=== PATIENT | female | born 1945 | race Two or more races ===

== ENCOUNTER → 2023-12-14 | Emergency (ER) | payer MEDICARE, OTHER ==
[~2023-12-14] VITALS: Ht 160 cm; Wt 72.0 kg
[~2023-12-14] MED LIST: AMLO-258 PO; ASPI-1444 PO; ATOR40TA28 PO; CARV6 PO; CEFT2VIA60 IM; CLOP75TA60 PO; EMPA25TA3 PO; FAMO20 PO; FERR325T23 PO; FURO20TA4 PO; FUROSEMIDE 20 MG/2 ML VIAL IVP ONE; LEVO50 PO; METF-1211 PO; MULT-1203 PO; SENN-376 PO; SODI100067 PO
[2023-12-14 11:04] VITALS: TEMP 98.3
[2023-12-14 12:18] LABS: COVID AG,FIA SOURCE NASAL SWAB
[2023-12-14 12:26] LABS: BASOPHILS % (AUTO) 0.2 % (0.0-2.0); EOSINOPHILS % (AUTO) 1.1 % (1.0-6.0); HEMATOCRIT 23.6 % (36-46); HEMOGLOBIN 7.8 g/dL (12.0-16.0); LYMPHOCYTES # (AUTO) 0.8 K/uL (1.0-4.8); LYMPHOCYTES % (AUTO) 11.1 % (22.0-44.0); MEAN CORPUSCULAR VOLUME 88 fL (80-100); MONOCYTES # (AUTO) 0.5 K/uL (0.1-1.0); MONOCYTES % (AUTO) 6.6 % (2.0-9.0); NEUTROPHILS # (AUTO) 5.9 K/uL (1.8-7.7); PLATELET COUNT (AUTO) 554 K/uL (150-450); RED BLOOD CELL COUNT(AUTO) 2.68 MIL/uL (4.00-5.20); RED CELL DISTRIBUTION WIDTH 14.6 % (11.5-14.5); WHITE BLOOD COUNT (AUTO) 7.2 K/uL (4.5-11.0)
[2023-12-14 12:32] LABS: CREATININE 1.22 mg/dL (0.60-1.30); POTASSIUM 4.1 mmol/L (3.5-5.1)
[2023-12-14 12:38] LABS: ALBUMIN 1.8 g/dL (3.4-5.0); BILIRUBIN,DIRECT 0.1 mg/dL (0.00-0.20); BILIRUBIN,TOTAL 0.2 mg/dL (0.1-1.0); TOTAL PROTEIN, SERUM 7.5 g/dL (6.4-8.2)
[2023-12-14 12:39] LABS: TROPONIN I-HIGH SENSITIVITY 10 ng/L (<51)
[2023-12-14 12:53] LABS: SARS-COV2 (COVID) ANTIGEN,FIA Negative (Negative)
[2023-12-14 12:54] LABS: INFLUENZA TYPE A NEGATIVE FOR TYPE A (NEGATIVE); INFLUENZA TYPE B NEGATIVE FOR TYPE B (NEGATIVE)
[2023-12-14 13:24] VITALS: BP 141/76; PULSE 93; RESP 19; O2SAT 93
[2023-12-14] MEDS: FUROSEMIDE 40 MG/4 ML VIAL IVP ONE (13:37)
== END | disposition still patient (30) ==
LOC: EMS 10:20
DX: I50.23 Acute on chronic systolic (congestive) heart failure (principal); R14.0 Abdominal distension (gaseous); R09.02 Hypoxemia; E11.9 Type 2 diabetes mellitus without complications; Z88.1 Allergy status to other antibiotic agents; Z20.822 Contact with and (suspected) exposure to COVID-19
CPT/HCPCS: 99285; 96374; 71045; 87426; 80048; 80076; 82550; 83880; 84484; 85025; 87804; 36415; 93005; J1940